=== PATIENT | female | born 1980 | race African-American/Black ===

== ENCOUNTER 2016-08-17 10:33 | Emergency (ER) | payer SELFPAY ==
[~2016-08-17] VITALS: Ht 152.4 cm; Wt 49.9 kg
[2016-08-17] MEDS ORDERED: Acetaminophen 500mg (ES) tab ORAL ONE (11:30)
[2016-08-17 12:18] LABS: BASOPHILS % (AUTO) 0.7 % (0.0-2.0); EOSINOPHILS % (AUTO) 0.1 % (0.0-3.0); LYMPHOCYTES % (AUTO) 6.3 % (20.0-45.0); MEAN CORPUSCULAR HEMOGLOBIN 31.4 PG (27.0-31.0); MEAN CORPUSCULAR HGB CONC 33.3 G/DL (32.0-36.0); MEAN CORPUSCULAR VOLUME 94 FL (80-99); MEAN PLATELET VOLUME 6.3 FL (6.5-10.1); MONOCYTES % (AUTO) 8.6 % (1.0-10.0); NEUTROPHILS % (AUTO) 84.3 % (45.0-75.0); PLATELET COUNT 254 K/UL (150-450); RED BLOOD COUNT 4.83 M/UL (4.20-5.40); RED CELL DISTRIBUTION WIDTH 12.5 % (11.6-14.8); WHITE BLOOD COUNT 12.2 K/UL (4.8-10.8)
[2016-08-17 12:25] LABS: ALANINE AMINOTRANSFERASE 30 U/L (3-33); ALBUMIN/GLOBULIN RATIO 0.9 (1.0-2.7); ANION GAP 17 (5-15); ASPARTATE AMINO TRANSFERASE 27 U/L (5-40); CALCIUM 9.8 mg/dL (8.6-10.2); CARBON DIOXIDE 26 mEQ/L (20-30); CHLORIDE 88 mEQ/L (98-107); CREATININE 0.6 mg/dL (0.5-0.9); GLOMERULAR FILTRATION RATE > 60 mL/min (>60); HEMOLYSIS 5; POTASSIUM 3.7 mEQ/L (3.4-4.9); SODIUM 131 mEQ/L (135-145); TOTAL PROTEIN 8.2 g/dL (6.6-8.7)
--- NOTE | 2016-08-17 14:18 | Diagnostic Imaging Report ---
Indications: Left-sided neck pain and tenderness, and swelling for 3 days Technique: Continuous helical CT imaging of the neck from the base of the skull through the aortic arch was performed with automatic exposure control following intravenous administration of nonionic iodine contrast, on a Siemens sensation [address] scanner. Axial, coronal, and sagittal images were reconstructed at 3 mm slice thickness. CTDI volume(s): 8, 73, 20 mGy Total DLP: 660 mGy-cm Findings: Comparison: None Visualized portions of brain: Unremarkable. Paranasal sinuses: Partial opacification of bilateral maxillary sinuses with air-fluid levels.. Nasopharynx: Mild symmetric prominence of posterior lymphoid tissue without focal abnormality. Fascial planes preserved.. Oral cavity: Multiple dental and periapical lucencies left upper, bilateral lower teeth Oropharynx: Mild leftward shift of oral pharyngeal airway without narrowing. Epiglottis: Unremarkable. False vocal cords: Unremarkable. True vocal cords: Unremarkable. Subglottic airway: Unremarkable. Prevertebral soft tissues: Mildly thickened and edematous at supraglottic levels.. Bilateral parapharyngeal soft tissues: Unremarkable. Lymph nodes: Conglomerate of enlarged lymph nodes along the left jugular chain with central low attenuation up to 2.5 cm cross-sectional diameter, level II to III. Mild surrounding stranding. Several enlarged lymph nodes retain fatty marilyn and without internal attenuation at level Ib, up to 1.5 cm on right and 1.5 cm in length. Several small but asymmetrically prominent level IV nodes on the left up to 1.2 cm. Superficial soft tissues: Unremarkable. Parotid glands: Unremarkable. Submandibular glands: Mild stranding surrounding the parotid gland, no obvious focal abnormality common duct dilation or stone. Right unremarkable.. Thyroid gland: Unremarkable. Vascular structures: Extrinsic compression of left internal jugular vein via a forementioned lymph nodes; no other obvious significant flow-limiting abnormality. Skeletal structures: Unremarkable. Lung apices: Unremarkable. Upper mediastinum: Unremarkable. IMPRESSION: Enlarged, low attenuation/necrotic adenopathy left jugular chain with surrounding stranding. Favor infectious/inflammatory process, but neoplasm including lymphoma not excludable. Lesser bilateral submandibular adenopathy, nonnecrotic, left greater than right Mild stranding surrounding otherwise unremarkable appearing left submandibular gland, may represent extension of inflammatory change from adenopathy described above. Sialadenitis not excludable. No evidence of associated mass, abscess, or duct obstruction. Extrinsic compression of left internal jugular vein by above Bilateral maxillary sinusitis, acute The CT scanner at [facility] is accredited by the [employer] and the scans are performed using protocols designed to limit radiation exposure to as low as reasonably achievable to attain images of sufficient resolution adequate for diagnostic evaluation.
[2016-08-17] MEDS ORDERED: TRAMADOL HCL50 MG ORAL (14:26)
[2016-08-17] MEDS ORDERED: CLINDAMYCIN HC300 MG ORAL (14:26)
[2016-08-17 14:54] VITALS: BP 108/74
--- NOTE | 2016-08-19 07:11 | Emergency Room Report ---
History of Present Illness General Chief Complaint: General Complaint Source: Patient Present Illness HPI 36-year-old female presents ED complaining of left-sided neck pain and swelling. Started 3 days ago. Denies trauma. Notes swelling underneath her jaw. Per triage patient has a fever of 102.1. Patient denies any earache or sore throat. Denies sick contacts or recent travel. Pain is throbbing, 8/10, nonradiating. No other aggravating or relieving factors. Denies any other associated symptoms Allergies: Coded Allergies: No Known Allergies (Unverified , 08/17/16) Patient History Past Medical History: none Past Surgical History: none Pertinent Family History: none Social History: Denies: alcohol use, drug use, smoking Last Menstrual Period: 07/16/16 Now: No Immunizations: UTD Reviewed Nursing Documentation: PMH: Agreed, PSxH: Agreed Nursing Documentation-PMH Past Medical History: No Stated History Review of Systems All Other Systems: negative except mentioned in HPI Physical Exam Vital Signs Date Time Temp Pulse Resp B/P Pulse Ox O2 Delivery O2 Flow Rate FiO2 08/17/16 11:06 102.0 120 20 106/71 100 Room Air Sp02 EP Interpretation: reviewed, normal General Appearance: no apparent distress, alert, GCS 15, non-toxic Head: normocephalic Eyes: bilateral eye PERRL, bilateral eye normal inspection ENT: hearing grossly normal, normal pharynx, no angioedema, normal voice, other - L submandibular swelling Neck: full range of motion, no meningismus, supple/symm/no masses Respiratory: chest non-tender, lungs clear, normal breath sounds, speaking full sentences Cardiovascular #1: regular rate, rhythm, no edema Gastrointestinal: normal inspection Rectal: deferred Genitourinary: no CVA tenderness Musculoskeletal: normal inspection Neurologic: alert, oriented x3, responsive, motor strength/tone normal, sensory intact, speech normal Psychiatric: normal inspection Skin: normal inspection Lymphatic: normal inspection Medical Decision Making Diagnostic Impression: Primary Impression: Sialadenitis ER Course Hospital Course 36-year-old female presents to ED complaining of left-sided neck pain and swelling with fever Differential diagnosis includes-mumps, lymphadenopathy, abscess, Clinical course Patient placed on stretcher. After initial history and physical I ordered labs , IV fluids, pain medications and CT scan Labs - noted leukocytosis, hb/hct stable, electrolytse ok CT scan shows inflammation surrounding the submandibular glands. Neoplasm not excludable however findings are infectious given the onset of symptoms and fever. I discussed findings with patient Patient given IV clindamycin here in ED. Will be discharged on antibiotics. Patient instructed to followup with PMD/ENT or return to ED if symptoms do not improve I feel this is a highly complex case requiring extensive working including EKG/ Rhythm strip, Xray/CT/US, Blood/urine lab work, repeat exams while in ED, and administration of strong opiates/narcotics for pain control, admission to hospital or close patient follow up. Diagnosis - sialadenitis Stable and discharged to home with Rx Tramadol, Clindamycin. Followup with PMD/ ENT. Return to ED if symptoms recur or worsen Labs Test 08/17/16 11:15 08/17/16 11:44 Urine HCG, Qualitative Negative White Blood Count 12.2 K/UL (4.8-10.8) Red Blood Count 4.83 M/UL (4.20-5.40) Hemoglobin 15.2 G/DL (12.0-16.0) Hematocrit 45.5 % (37.0-47.0) Mean Corpuscular Volume 94 FL (80-99) Mean Corpuscular Hemoglobin 31.4 PG (27.0-31.0) Mean Corpuscular Hemoglobin Concent 33.3 G/DL (32.0-36.0) Red Cell Distribution Width 12.5 % (11.6-14.8) Platelet Count 254 K/UL (150-450) Mean Platelet Volume 6.3 FL (6.5-10.1) Neutrophils (%) (Auto) 84.3 % (45.0-75.0) Lymphocytes (%) (Auto) 6.3 % (20.0-45.0) Monocytes (%) (Auto) 8.6 % (1.0-10.0) Eosinophils (%) (Auto) 0.1 % (0.0-3.0) Basophils (%) (Auto) 0.7 % (0.0-2.0) Sodium Level 131 mEQ/L (135-145) Potassium Level 3.7 mEQ/L (3.4-4.9) Chloride Level 88 mEQ/L (98-107) Carbon Dioxide Level 26 mEQ/L (20-30) Anion Gap 17 (5-15) Blood Urea Nitrogen 4 mg/dL (7-23) Creatinine 0.6 mg/dL (0.5-0.9) Estimat Glomerular Filtration Rate > 60 mL/min (>60) Glucose Level 109 mg/dL (74-106) Calcium Level 9.8 mg/dL (8.6-10.2) Total Bilirubin 0.9 mg/dL (0.0-1.2) Aspartate Amino Transf (AST/SGOT) 27 U/L (5-40) Alanine Aminotransferase (ALT/SGPT) 30 U/L (3-33) Alkaline Phosphatase 134 U/L (35-104) Total Protein 8.2 g/dL (6.6-8.7) Albumin 3.9 g/dL (3.5-5.2) Globulin 4.3 g/dL Albumin/Globulin Ratio 0.9 (1.0-2.7) CT/MRI/US Diagnostic Results CT/MRI/US Diagnostic Results : Imaging Test Ordered: CT neck Impression Enlarged, low attenuation/necrotic adenopathy left jugular chain with surrounding stranding. Favor infectious/inflammatory process, but neoplasm including lymphoma not excludable. Lesser bilateral submandibular adenopathy, nonnecrotic, left greater than right Mild stranding surrounding otherwise unremarkable appearing left submandibular gland, may represent extension of inflammatory change from adenopathy described above. Sialadenitis not excludable. No evidence of associated mass, abscess, or duct obstruction. Last Vital Signs Date Time Temp Pulse Resp B/P Pulse Ox O2 Delivery O2 Flow Rate FiO2 08/17/16 14:54 98 18 108/74 97 Room Air 08/17/16 14:54 98.5 Status: improved Disposition: HOME, SELF-CARE Condition: Stable Scripts Clindamycin Hcl (CLINDAMYCIN HCL) 300 Mg Capsule 300 MG ORAL THREE TIMES A DAY, #21 CAP Prov: KASSY SANDOVAL M.D. 08/17/16 Tramadol Hcl* (ULTRAM*) 50 Mg Tablet 50 MG ORAL Q6H Y for For Pain, #30 TAB 0 Refills Prov: KASSY SANDOVAL M.D. 08/17/16 Patient Instructions: Parotitis, [id number] KASSY SANDOVAL M.D. Aug 19, 2016 07:11
== END 2016-08-17 14:57 | disposition home or self-care (01) ==
LOC: EMR 11:35
DX: K11.20 Sialoadenitis, unspecified (principal); R50.9 Fever, unspecified
CPT/HCPCS: 36415; 70491; 80053; 81025; 85025; 96360; 96361; 99284; J7040; Q9967; S0077

== ENCOUNTER 2016-09-01 21:49 | Emergency (ER) | payer MEDICAID ==
[~2016-09-01] VITALS: Ht 152.4 cm; Wt 49.9 kg
[~2016-09-01 21:49] MED LIST: CLINDAMYCIN HC300 MG ORAL; TRAMADOL HCL50 MG ORAL
[2016-09-01] MEDS ORDERED: IBUPROFEN600 MG ORAL (23:35)
[2016-09-01] MEDS ORDERED: TYLENOL EXTRA500 MG ORAL (23:35)
[2016-09-01 23:37] VITALS: BP 109/84
[2016-09-02 00:04] LABS: ALANINE AMINOTRANSFERASE 24 U/L (3-33); ALBUMIN/GLOBULIN RATIO 0.5 (1.0-2.7); ANION GAP 26 (5-15); ASPARTATE AMINO TRANSFERASE 36 U/L (5-40); CALCIUM 9.9 mg/dL (8.6-10.2); CARBON DIOXIDE 20 mEQ/L (20-30); CHLORIDE 88 mEQ/L (98-107); CREATININE 0.8 mg/dL (0.5-0.9); GLOMERULAR FILTRATION RATE > 60 mL/min (>60); HEMOLYSIS 2; SODIUM 134 mEQ/L (135-145); TOTAL PROTEIN 8.3 g/dL (6.6-8.7)
[2016-09-02 00:10] LABS: POTASSIUM 2.7 mEQ/L (3.4-4.9)
[2016-09-02 00:16] LABS: MEAN CORPUSCULAR HGB CONC 34.8 G/DL (32.0-36.0); MEAN CORPUSCULAR VOLUME 89 FL (80-99); MEAN PLATELET VOLUME 4.8 FL (6.5-10.1); PLATELET COUNT 887 K/UL (150-450); RED BLOOD COUNT 4.19 M/UL (4.20-5.40); RED CELL DISTRIBUTION WIDTH 14.3 % (11.6-14.8)
[2016-09-02 00:18] LABS: WHITE BLOOD COUNT 28.4 K/UL (4.8-10.8)
[2016-09-02 00:24] LABS: APPEARANCE,URINE CLEAR; KETONES,URINE 2+ (NEGATIVE); LEUKOCYTE ESTERASE ,URINE NEGATIVE (NEGATIVE); NITRITE,URINE NEGATIVE (NEGATIVE); PH,URINE 5 (4.5-8.0); UROBILINOGEN,URINE 1 MG/DL (0.0-1.0)
[2016-09-02 00:25] LABS: PROTEIN,URINE NEGATIVE (NEGATIVE)
[2016-09-02] MEDS ORDERED: Piperacillin/Tazobactam 3.375 GM in NS 110 ML IVPB ONE (00:45)
[2016-09-02] MEDS ORDERED: Zosyn 3.375gm inj ONE (00:46)
[2016-09-02 00:49] LABS: BILIRUBIN,DIRECT 0.6 mg/dL (0.1-0.3)
[2016-09-02 01:02] LABS: BAND NEUTROPHILS % (MANUAL) 0 % (0-8); BASOPHILS % (MANUAL) 0 % (0-2); EOSINOPHILS % (MANUAL) 0 % (0-3); LYMPHOCYTES % (MANUAL) 16 % (20-45); NEUTROPHILS % (MANUAL) 80 % (45-75); PLATELET ESTIMATE INCREASED; PLATELET MORPHOLOGY NORMAL; TOTAL CELLS COUNTED 100
[2016-09-02] MEDS ORDERED: AUGMENTIN 875-1 EAC1 ORAL (02:28)
[2016-09-02] MEDS ORDERED: NORCO 5-325 TA1 EACH ORAL (02:28)
[2016-09-02] MEDS ORDERED: Morphine Sulfate 4mg/ml Inj IVP ONE (02:30)
[2016-09-02 02:49] VITALS: BP 112/87
[2016-09-02 02:50] VITALS: BP 112/87
--- NOTE | 2016-09-02 05:46 | Emergency Room Report ---
History of Present Illness General Chief Complaint: Pain Source: Patient Present Illness HPI 36-year-old female presents ED for evaluation. Patient notes pain and swelling to left side of her neck. States it has been there for several weeks now. Was seen here in [place] end of July for the same problem. Patient had CT of neck which showed a "infection". Patient was discharged on antibiotics. States that symptoms ever improved in fact got worse. Notes increased swelling to the neck. Notes increased pain. Pain is a 10 out of 10. Throbbing. Nonradiating. No other aggravating relieving factors. Denies shortness of breath. Denies difficulty swallowing. No other aggravating relieving factors. Denies any other associated symptom Allergies: Coded Allergies: No Known Allergies (Unverified , 08/17/16) Patient History Past Medical History: none Past Surgical History: none Pertinent Family History: none Social History: Denies: alcohol use, drug use, smoking Last Menstrual Period: 08/19/16 Now: No Immunizations: UTD Reviewed Nursing Documentation: PMH: Agreed, PSxH: Agreed Nursing Documentation-PMH Past Medical History: No Stated History Review of Systems All Other Systems: negative except mentioned in HPI Physical Exam Vital Signs Date Time Temp Pulse Resp B/P Pulse Ox O2 Delivery O2 Flow Rate FiO2 09/01/16 23:10 98.8 102 16 109/84 100 Room Air Sp02 EP Interpretation: reviewed, normal General Appearance: no apparent distress, alert, GCS 15, non-toxic Head: normocephalic Eyes: bilateral eye PERRL, bilateral eye normal inspection ENT: hearing grossly normal, normal pharynx, no angioedema, normal voice Neck: other - swelling to L side of neck. no fluctuance. no discharge Respiratory: chest non-tender, lungs clear, normal breath sounds, speaking full sentences Cardiovascular #1: regular rate, rhythm, no edema Gastrointestinal: normal inspection Rectal: deferred Genitourinary: no CVA tenderness Musculoskeletal: normal inspection Neurologic: alert, oriented x3, responsive, motor strength/tone normal, sensory intact, speech normal Psychiatric: normal inspection Skin: normal inspection Lymphatic: normal inspection Medical Decision Making Diagnostic Impression: Primary Impression: Neck mass ER Course Hospital Course 36-year-old female presents ED complaining of increased neck swelling and pain. Seen in July for same complaint Differential diagnosis includes-abscess, lymphadenopathy, sialoadenitis clinical course Patient placed on stretcher. After initial history and physical I ordered labs , IV fluids, pain medications and CT scan Labs - marked leukocytosis, K 2.7 CT scan shows large lobulated fat and fluid mass on left side. no airway compromise. consistent with lymphangioma compared to CT from 3 weeks ago which showed similar character of lesion but smaller in size I saw this patient on last visit. Prescribed antibiotics and recommended followup with the ENT. Patient returned here because she does not have PMD followup. I made attempts to transfer patient to [facility] but no beds were available. While I was attempting to contact ENT here patient states she did not want to wait and will go to [facility] on her own Patient given antibiotics here. Given pain medications. Understands the risks of leaving. Patient has competency to make her own decisions. Signed AMA form. I feel this is a highly complex case requiring extensive working including EKG/ Rhythm strip, Xray/CT/US, Blood/urine lab work, repeat exams while in ED, and administration of strong opiates/narcotics for pain control, admission to hospital or close patient follow up. Diagnosis - neck mass left AMA. given Rx for Sieper and augmentin. given copy of CT report Labs Test 09/01/16 23:20 09/01/16 23:24 Urine Color Pale yellow Urine Appearance Clear Urine pH 5 (4.5-8.0) Urine Specific [place] 1.015 (1.005-1.035) Urine Protein Negative (NEGATIVE) Urine Glucose (UA) Negative (NEGATIVE) Urine Ketones 2+ (NEGATIVE) Urine Occult Blood Negative (NEGATIVE) Urine Nitrite Negative (NEGATIVE) Urine Bilirubin Negative (NEGATIVE) Urine Urobilinogen 1 MG/DL (0.0-1.0) Urine Leukocyte Esterase Negative (NEGATIVE) Urine HCG, Qualitative Negative White Blood Count 28.4 K/UL (4.8-10.8) Red Blood Count 4.19 M/UL (4.20-5.40) Hemoglobin 13.0 G/DL (12.0-16.0) Hematocrit 37.3 % (37.0-47.0) Mean Corpuscular Volume 89 FL (80-99) Mean Corpuscular Hemoglobin 31.0 PG (27.0-31.0) Mean Corpuscular Hemoglobin Concent 34.8 G/DL (32.0-36.0) Red Cell Distribution Width 14.3 % (11.6-14.8) Platelet Count 887 K/UL (150-450) Mean Platelet Volume 4.8 FL (6.5-10.1) Neutrophils (%) (Auto) % (45.0-75.0) Lymphocytes (%) (Auto) % (20.0-45.0) Monocytes (%) (Auto) % (1.0-10.0) Eosinophils (%) (Auto) % (0.0-3.0) Basophils (%) (Auto) % (0.0-2.0) Differential Total Cells Counted 100 Neutrophils % (Manual) 80 % (45-75) Lymphocytes % (Manual) 16 % (20-45) Monocytes % (Manual) 4 % (1-10) Eosinophils % (Manual) 0 % (0-3) Basophils % (Manual) 0 % (0-2) Band Neutrophils 0 % (0-8) Platelet Estimate Increased Platelet Morphology Normal Red Blood Cell Morphology Normal Sodium Level 134 mEQ/L (135-145) Potassium Level 2.7 mEQ/L (3.4-4.9) Chloride Level 88 mEQ/L (98-107) Carbon Dioxide Level 20 mEQ/L (20-30) Anion Gap 26 (5-15) Blood Urea Nitrogen 14 mg/dL (7-23) Creatinine 0.8 mg/dL (0.5-0.9) Estimat Glomerular Filtration Rate > 60 mL/min (>60) Glucose Level 116 mg/dL (74-106) Calcium Level 9.9 mg/dL (8.6-10.2) Total Bilirubin 1.4 mg/dL (0.0-1.2) Direct Bilirubin 0.6 mg/dL (0.1-0.3) Aspartate Amino Transf (AST/SGOT) 36 U/L (5-40) Alanine Aminotransferase (ALT/SGPT) 24 U/L (3-33) Alkaline Phosphatase 160 U/L (35-104) Total Protein 8.3 g/dL (6.6-8.7) Albumin 2.9 g/dL (3.5-5.2) Globulin 5.4 g/dL Albumin/Globulin Ratio 0.5 (1.0-2.7) CT/MRI/US Diagnostic Results CT/MRI/US Diagnostic Results : Imaging Test Ordered: CT Neck Impression Left neck 6.1 x 7.2 x 9.4 cm lobulated fluid and fat density lesion. The lesion is centered within the left lower neck predominantly in the posterior cervical space and may represent a lymphangioma. Last Vital Signs Date Time Temp Pulse Resp B/P Pulse Ox O2 Delivery O2 Flow Rate FiO2 09/02/16 02:50 98.8 82 16 112/87 100 Room Air Status: unchanged Disposition: AGAINST MEDICAL ADVICE Condition: Stable Scripts Amoxicillin/Potassium Clav 875-125* (AUGMENTIN 875-125 TABLET*) 1 Each Tablet 1 TAB ORAL TWICE A DAY, #14 TAB Prov: KASSY SANDOVAL M.D. 09/02/16 Hydrocodone Bit/Acetaminophen 5-325* (NORCO 5-325*) 1 Each Tablet 1 TAB ORAL Q6H Y for For Pain, #10 TAB 0 Refills Prov: KASSY SANDOVAL M.D. 09/02/16 Patient Instructions: Lymphadenopathy KASSY SANDOVAL M.D. Sep 02, 2016 05:46
--- NOTE | 2016-09-02 10:11 | Diagnostic Imaging Report ---
Indication: SWELL: Sudden neck pain Technique: IV administration nonionic contrast. Spiral acquisitions obtained through the neck. Multiplanar reconstructions were generated. Total dose length product 458 mGycm. CTDIvol(s) 18 mGy. Radiation dose was minimized using automated exposure control Comparison: 08/17/2016 Findings: There is a large low-attenuation collection now present in the left lateral neck, posterior and inferior the angle of mandible and deep to the sternocleidomastoid muscle which measures 8 cm in length by 5.6 cm transverse by 9.3 cm craniocaudad. Is complex in shape but probably unilocular. This appears to be centered or the previously demonstrated clustered necrotic lymph nodes is located. This displaces the common carotid artery anteriorly and medially and compresses the adjacent venous structures. There is rightward deviation of the airway. Of the airway. This results in considerable attenuation of the hypopharynx. There is mild prominence of the adenoids and tonsils. There is retropharyngeal edema but no meño abscess The included thyroid is unremarkable. The visualized trachea and esophagus are unremarkable prominent but not frankly enlarged lymph nodes are present on the right. Prominent left submandibular nodes are noted. The parotid glands are unremarkable. The bones are unremarkable. The included lung apices are clear. Impression: Since 08/17/2016, interim development of large 8 x 5.6 x 9.3 cm collection in region of previously demonstrated necrotic adenopathy. This is consistent with a large abscess. This results in compression of the left internal jugular vein. Prominent submandibular nodes, also previously described Findings represent a discrepancy from the [facility] preliminary report, which described next mass as a possible lymphangioma. Discrepant findings were discussed with Dr. Narayan at the time of interpretation, as well as provided to [facility] via their website The CT scanner at [facility] is accredited by the [employer] and the scans are performed using protocols designed to limit radiation exposure to as low as reasonably achievable to attain images of sufficient resolution adequate for diagnostic evaluation.
== END 2016-09-02 02:55 | disposition left against medical advice (07) ==
LOC: EMR 23:10
DX: R22.1 Localized swelling, mass and lump, neck (principal); D72.829 Elevated white blood cell count, unspecified
CPT/HCPCS: 36415; 70491; 80053; 81003; 81025; 82248; 85007; 85025; 87081; 96360; 96374; 96375; 99284; J2270; J2543; J7040; Q9967; J8499